=== PATIENT | female | born 1995 | race Caucasian/White ===

== ENCOUNTER 2021-07-30 19:36 | Emergency (ER) | payer OTHER, MEDICAID, SELFPAY ==
[2021-07-30 19:52] VITALS: BP 133/75; PULSE 74; RESP 18; TEMP 35.9; O2SAT 98; BMI 38.0
[2021-07-30 20:21] LABS: COVID19 -Nasal RAPID Negative (Negative)
--- NOTE | 2021-07-30 20:32 | ED_ITS ---
HPI - General Adult General Chief complaint: Dizziness Stated complaint: feeling dizzy, nauseus started this morning Time Seen by Provider: 07/30/21 20:03 Source: patient Mode of arrival: Ambulatory Limitations: no limitations History of Present Illness HPI narrative: Patient is a 26-year-old female. Since this morning she has had episodes of feeling dizzy and nauseated. Has not been vomiting. No chest pain. She states that her stomach just feels uneasy. She was here in the emergency department with her son who is being seen for a rash when her symptoms seem to worsen so she checked into the emergency department to be evaluated. Related Data Allergies Allergy/AdvReac Type Severity Reaction Status Date / Time No Known Drug Allergies Allergy Verified 07/30/21 19:59 Review of Systems Constitutional Constitutional: Denies fever(s) Cardiovascular Cardiovascular: Denies chest pain and Denies dyspnea Respiratory Respiratory: Denies dyspnea Gastrointestinal Gastrointestinal: Reports as per HPI and Reports system reviewed and no additional complaints, except as documented Integumentary/Breasts Skin/Breast: Reports system reviewed and no additional complaints, except as documented Neurologic Neurologic: Reports system reviewed and no additional complaints, except as documented Hematologic/Lymphatic On Anticoagulants: No Patient History Medical History Healthy adult Social History Smoking Status: Never smoker Smoking Status: Never smoker Substance Use Type: does not use Exam Initial Vital Signs Initial Vital Signs: Vital Signs Temperature 96.6 F L 07/30/21 19:52 Pulse Rate 74 07/30/21 19:52 Respiratory Rate 18 07/30/21 19:52 Blood Pressure 133/75 07/30/21 19:52 Pulse Oximetry 98 07/30/21 19:52 HENMT Head: normal to inspection and normocephalic Resp Effort & Inspection: normal respiratory effort Auscultation: clear to auscultation bilaterally Cardio Rate: regular rate Rhythm: regular rhythm Skin General: no rashes or lesions noted Neuro General: patient alert, patient awake and moves all extremities Extrem General: normal to inspection and capillary refill normal Psych Appearance: grossly normal and well kempt Course Orders Ordered: ED Orders 07/30/21 20:00 COVID19 -Nasal RAPID/Pre-Proc Stat 07/30/21 21:55 EKG-12 Lead Stat 07/30/21 22:13 Basic Metabolic Panel Stat Complete Blood Count AUTO DIFF Stat Discontinued Medications Ondansetron HCl (Ondansetron 4 Mg Odt) 4 mg SL NOW ONE Stop: 07/30/21 20:34 Last Admin: 07/30/21 20:40 Dose: 4 mg Documented by: LEXII Vital Signs Vital signs: Vital Signs - 8 hr 07/30/21 19:52 07/30/21 22:52 Temperature 96.6 F L Pulse Rate 74 81 Respiratory Rate 18 18 Blood Pressure 133/75 128/90 Pulse Oximetry 98 98 Medical Decision Making Lab Data Result diagrams: 07/30/21 22:13 07/30/21 22:13 Labs: Lab Results 07/30/21 07/30/21 07/30/21 Range/Units 20:00 22:13 22:13 WBC 9.7 (4.5-11.0) X10^3/uL RBC 4.59 (4.0-5.2) X10^6/uL Hgb 13.2 (12.0-16.0) g/dL Hct 38.9 (36-46) % MCV 84.8 (80-100) fL MCH 28.8 (26-34) PG MCHC 33.9 (30-36) % RDW 13.6 (11.6-14.8) % Plt Count 285 (150-400) X10^3/uL Neut % (Auto) 63.0 (50-75) % Lymph % (Auto) 29.6 (25-40) % [place] % (Auto) 6.1 (3-14) % Eos % (Auto) 0.7 L (2-4) % Baso % (Auto) 0.6 (0-2) % Neut # (Auto) 6100 (4082-0615) /uL Lymph # (Auto) 2900 (0129-2879) /uL [place] # (Auto) 600 (0-900) /uL Eos # (Auto) 100 (0-450) /uL Baso # (Auto) 100 (0-100) /uL Sodium 140 (137-145) mmol/L Potassium 4.0 (3.4-5.1) mmol/L Chloride 102 (98-107) mmol/L Carbon Dioxide 28 (22-32) mmol/L BUN 12 (7-17) mg/dL Creatinine 0.74 (0.52-1.04) mg/dL Estimated GFR > 60 (>60) mL/min BUN/Creatinine Ratio 16.2 (6-22) Glucose 99 (70-100) mg/dL Calcium 9.0 (8.4-10.2) mg/dL SARS-CoV-2 (PCR) Negative (Negative) Point of Care Testing Test Results Negative Urine Dip Bedside Urine Glucose Negative Bedside Urine Bilirubin - Negative Bedside Urine Ketone - Negative Urine Specific [place] 1.020 Bedside Urine Occult Blood - Negative Bedside Urine pH 6.0 Bedside Urine Protein - Negative Bedside Urine Urobilinogen - Negative Bedside Urine Nitrite - Negative Bedside Urine Leukocytes - Negative Esterase Point of care testing: Point of Care Testing Test Results Negative Urine Dip Bedside Urine Glucose Negative Bedside Urine Bilirubin - Negative Bedside Urine Ketone - Negative Urine Specific [place] 1.020 Bedside Urine Occult Blood - Negative Bedside Urine pH 6.0 Bedside Urine Protein - Negative Bedside Urine Urobilinogen - Negative Bedside Urine Nitrite - Negative Bedside Urine Leukocytes - Negative Esterase MDM Narrative Medical decision making narrative: Physical exam is nonfocal and unremarkable. Labs are unremarkable. Vital signs are unremarkable. test is negative. Denies palpitations. Do feel that we can hold on further workup for now was I do have low suspicion for an acute emergent process given her presentation. Despite this she was given strict return precautions. She expressed understanding agreement. Discharge Plan Departure Patient Disposition: Home Clinical Impression: Dizziness, Nausea Instructions: DI for Dizziness-Nonvertigo Activity Restrictions/Additional Instructions: I recommend that you increase your fluid intake. Continue all medications as directed. Contact your primary doctor for a follow-up. Return to the emergency department for any new or worsening symptoms.
[2021-07-30] MEDS: ONDANSETRON 4 MG ODT SL (20:40)
[2021-07-30 22:22] LABS: Add Manual Diff / Slide Review NO; Basophils Absolute Auto 100 /uL (0-100); Basophils Percent Auto 0.6 % (0-2); Eosinophils Absolute Auto 100 /uL (0-450); Eosinophils Percent Auto 0.7 % (2-4); Hematocrit 38.9 % (36-46); Hemoglobin 13.2 g/dL (12.0-16.0); Lymphocytes Absolute Auto 2900 /uL (1100-4500); Lymphocytes Percent Auto 29.6 % (25-40); Mean Corpuscular HGB Conc 33.9 % (30-36); Mean Corpuscular Hemoglobin 28.8 PG (26-34); Mean Corpuscular Volume 84.8 fL (80-100); Monocytes Absolute Auto 600 /uL (0-900); Monocytes Percent Auto 6.1 % (3-14); Neutrophils Absolute Auto 6100 /uL (1500-7000); Platelet Count 285 X10^3/uL (150-400); Red Blood Cell Count 4.59 X10^6/uL (4.0-5.2); Red Cell Distribution Width 13.6 % (11.6-14.8); White Blood Cell Count 9.7 X10^3/uL (4.5-11.0)
[2021-07-30 22:33] LABS: BUN Creatinine Ratio 16.2 (6-22); Blood Urea Nitrogen 12 mg/dL (7-17); Carbon Dioxide 28 mmol/L (22-32); Chloride 102 mmol/L (98-107); Estimated Glomerular Filt Rate > 60 mL/min (>60); Glucose 99 mg/dL (70-100); HEMOLYSIS 62 (0-50); Sodium 140 mmol/L (137-145)
[2021-07-30 22:52] VITALS: BP 128/90; PULSE 81; RESP 18; O2SAT 98
== END 2021-07-30 22:53 | disposition home or self-care (01) ==
PROVIDERS: Emergency Provider Emergency Medicine
DX: R42 Dizziness and giddiness (principal); R11.0 Nausea; Z20.822 Contact with and (suspected) exposure to COVID-19
CPT/HCPCS: 36415; 80048; 81003; 81025; 85025; 87635; 99283; 99284; C9803

== ENCOUNTER 2022-06-30 15:31 | Emergency (ER) | payer OTHER, MEDICAID, SELFPAY ==
[2022-06-30 16:07] VITALS: BP 145/80; PULSE 92; RESP 20; TEMP 36.8; O2SAT 98; BMI 41.0
--- NOTE | 2022-06-30 16:16 | DI.CT.S_ITS ---
PROCEDURE: CT HEAD/BRAIN WO CON INDICATIONS: headache with extremity weakness TECHNIQUE: Noncontrast 4.5 mm thick angled axial sections acquired from the foramen magnum to the vertex, with coronal and sagittal reformats. For radiation dose reduction, the following was used: automated exposure control, adjustment of mA and/or kV according to patient size. COMPARISON: CT, SINUS SCREEN WO CONTRAST, 08/26/2013, 15:28. FINDINGS: Image quality: Excellent. CSF spaces: Basal cisterns are patent. No extra-axial fluid collections. Ventricles are normal in size and shape. Brain: No midline shift. No intracranial masses or hemorrhage. Wong-white matter interface is normal. Skull and face: Calvarium and visualized facial bones are intact, without suspicious lesions. Sinuses: Visualized sinuses demonstrate small mucous retention cyst versus polyp in the right maxillary sinus. IMPRESSION: 1. No acute intracranial process. Dictated by: La Martinez M.D. on 06/30/2022 at 16:36 Approved by: La Martinez M.D. on 06/30/2022 at 16:37
--- NOTE | 2022-06-30 18:12 | ED.HA ---
HPI - Headache <OPAL Eller - Last Filed: 06/30/22 20:20> General Chief Complaint: Headache Stated Complaint: Tingling extremities, Headache Time Seen by Provider: 06/30/22 18:02 Mode of arrival: Ambulatory History of Present Illness HPI Narrative: This is a 27-year-old female presents to the emergency department today complaining of a headache with a migraine history with aura but worse migraine today than usual. She states that she was diagnosed with strep C pharyngitis last week and was started on penicillin but did not take a full course, was told that she would be called if she needed to start another antibiotic and states that she did not get a call but she took 1 or 2 doses of this other antibiotic that she can not remember. She states she went to the walk-in clinic for this at another location. Patient is currently trying to get although she is not ovulating so she states there isn't possibility she could be . She endorses fever and chills, anterior cervical lymphadenopathy on the left side, denies having any cough, denies vomiting but states that she has had a headache which is similar to previous migraines just worse today and has not gone away with Tylenol. She came in today because she states that her right arm has been tingling. She denies any recent trauma. States that she tires easily with any exertion and has been more fatigued than usual. States that her heart rate increases with all activity. Related Data Previous Rx's Medication Instructions Recorded amoxicillin 875 mg-potassium 1 tab PO BID 10 days #20 tabs 06/30/22 clavulanate 125 mg tablet benzocaine 15 mg-menthol 2.6 mg 1 rosita mucous membrane Q2-4H PRN 06/30/22 lozenges (Cepacol Sore Throat sore throat #16 ea (benzocaine-menthol)) Allergies Allergy/AdvReac Type Severity Reaction Status Date / Time No Known Drug Allergies Allergy Verified 06/30/22 16:12 Review of Systems <OPAL Eller - Last Filed: 06/30/22 20:20> Review of Systems ROS Unobtainable: All systems reviewed & are unremarkable except as noted in HPI and below Patient History <OPAL Eller - Last Filed: 06/30/22 20:20> Medical History Healthy adult Social History Smoking Status: Never smoker Smoking Status: Never smoker Substance Use Type: does not use Exam <OPAL Eller - Last Filed: 06/30/22 20:20> Narrative Exam Narrative: Reviewed vitals signs and nursing notes. General: Pleasant, sitting upright, appears uncomfortable, well groomed, afebrile HEENT: symmetrical facial expressions, moist mucous membranes, neck is supple, anterior cervical lymphadenopathy on the left, full range of motion of her neck, is supple, posterior pharynx is erythematous, tonsillar adenopathy is it 2+ without exudate, uvula is midline, no visible [employer] EOMI, PERRLA bilaterally CV: regular rate and rhythm, warm extremities Respiratory: normal work of breathing, without tachypnea or hypoxia. GI: abdomen soft, nondistended, without CVA tenderness bilaterally. MSK: moves all extremities, no weakness, normal tone, ambulatory without deficit Skin: brisk capillary refill, without rash or wound Neuro: normal speech and cognition, A&O x3 Initial Vital Signs Initial Vital Signs: Vital Signs Temperature 98.2 F 06/30/22 16:07 Pulse Rate 92 H 06/30/22 16:07 Respiratory Rate 20 06/30/22 16:07 Blood Pressure 145/80 H 06/30/22 16:07 Pulse Oximetry 98 06/30/22 16:07 Oxygen Delivery Method Room Air 06/30/22 16:07 <Benton Byrne DO - Last Filed: 07/01/22 01:40> Initial Vital Signs Initial Vital Signs: Vital Signs Temperature 98.2 F 06/30/22 16:07 Pulse Rate 92 H 06/30/22 16:07 Respiratory Rate 20 06/30/22 16:07 Blood Pressure 145/80 H 06/30/22 16:07 Pulse Oximetry 98 06/30/22 16:07 Oxygen Delivery Method Room Air 06/30/22 16:07 Course <OPAL Eller - Last Filed: 06/30/22 20:20> Orders Ordered: ED Orders 06/30/22 18:18 Basic Metabolic Panel Stat CRP [C-Reactive Protein Quant] Stat Complete Blood Count AUTO DIFF Stat HCG Quantitative /Beta subunit Stat 06/30/22 19:19 Throat Culture Stat Discontinued Medications Acetaminophen (Acetaminophen 325 Mg Tablet) 975 mg PO NOW ONE Stop: 06/30/22 18:04 Last Admin: 06/30/22 18:24 Dose: 975 mg Documented By: RL Dexamethasone (Dexamethasone 10 Mg/Ml Vial) 8 mg IV NOW ONE Stop: 06/30/22 18:04 Last Admin: 06/30/22 18:24 Dose: 8 mg Documented By: RL Sodium Chloride (Normal Saline 0.9%) 1,000 mls @ 1,000 mls/hr IV BOLUS ONE Stop: 06/30/22 19:02 Last Infusion: 06/30/22 19:28 Dose: 0 mls/hr Documented By: Admin: 06/30/22 18:24 Dose: 1,000 mls/hr Documented By: RL Ampicillin Sodium/Sulbactam (Sodium 3 gm/ Sodium Chloride) 100 mls @ 200 mls/hr IV NOW ONE Stop: 06/30/22 18:35 Last Infusion: 06/30/22 20:18 Dose: 0 mls/hr Documented By: Admin: 06/30/22 19:44 Dose: 200 mls/hr Documented By: KISHAN Ketorolac Tromethamine (Ketorolac 30 Mg/Ml Vial) 15 mg IV NOW ONE Stop: 06/30/22 18:04 Last Admin: 06/30/22 18:24 Dose: 15 mg Documented By: ALDEN Ondansetron HCl (Ondansetron 4 Mg/2 Ml Inj) 4 mg IV NOW ONE Stop: 06/30/22 18:04 Last Admin: 06/30/22 18:24 Dose: 4 mg Documented By: ALDEN Vital Signs Vital signs: Vital Signs - 8 hr 06/30/22 20:27 Pulse Rate 82 Respiratory Rate 16 Blood Pressure 132/76 Pulse Oximetry 97 Oxygen Delivery Method Room Air <Benton Byrne DO - Last Filed: 07/01/22 01:40> Orders Ordered: ED Orders 06/30/22 18:18 Basic Metabolic Panel Stat CRP [C-Reactive Protein Quant] Stat Complete Blood Count AUTO DIFF Stat HCG Quantitative /Beta subunit Stat 06/30/22 19:19 Throat Culture Stat Discontinued Medications Acetaminophen (Acetaminophen 325 Mg Tablet) 975 mg PO NOW ONE Stop: 06/30/22 18:04 Last Admin: 06/30/22 18:24 Dose: 975 mg Documented By: ALDEN Dexamethasone (Dexamethasone 10 Mg/Ml Vial) 8 mg IV NOW ONE Stop: 06/30/22 18:04 Last Admin: 06/30/22 18:24 Dose: 8 mg Documented By: RL Sodium Chloride (Normal Saline 0.9%) 1,000 mls @ 1,000 mls/hr IV BOLUS ONE Stop: 06/30/22 19:02 Last Infusion: 06/30/22 19:28 Dose: 0 mls/hr Documented By: Admin: 06/30/22 18:24 Dose: 1,000 mls/hr Documented By: ALDEN Ampicillin Sodium/Sulbactam (Sodium 3 gm/ Sodium Chloride) 100 mls @ 200 mls/hr IV NOW ONE Stop: 06/30/22 18:35 Last Infusion: 06/30/22 20:18 Dose: 0 mls/hr Documented By: Admin: 06/30/22 19:44 Dose: 200 mls/hr Documented By: KISHAN Ketorolac Tromethamine (Ketorolac 30 Mg/Ml Vial) 15 mg IV NOW ONE Stop: 06/30/22 18:04 Last Admin: 06/30/22 18:24 Dose: 15 mg Documented By: ALDEN Ondansetron HCl (Ondansetron 4 Mg/2 Ml Inj) 4 mg IV NOW ONE Stop: 06/30/22 18:04 Last Admin: 06/30/22 18:24 Dose: 4 mg Documented By: ALDEN Vital Signs Vital signs: Vital Signs - 8 hr 06/30/22 20:27 Pulse Rate 82 Respiratory Rate 16 Blood Pressure 132/76 Pulse Oximetry 97 Oxygen Delivery Method Room Air MDM - Headache <OPAL Eller - Last Filed: 06/30/22 20:20> Lab Data 06/30/22 18:18 06/30/22 18:18 Labs: Lab Results 06/30/22 06/30/22 06/30/22 Range/Units 18:18 18:18 18:18 WBC 13.1 H (4.5-11.0) X10^3/uL RBC 4.71 (4.0-5.2) X10^6/uL Hgb 13.7 (12.0-16.0) g/dL Hct 40.5 (36-46) % MCV 85.9 (80-100) fL MCH 29.2 (26-34) PG MCHC 33.9 (30-36) % RDW 13.6 (11.6-14.8) % Plt Count 328 (150-400) X10^3/uL Neut % (Auto) 68.2 (50-75) % Lymph % (Auto) 25.0 (25-40) % [place] % (Auto) 5.6 (3-14) % Eos % (Auto) 0.7 L (2-4) % Baso % (Auto) 0.5 (0-2) % Neut # (Auto) 8900 H (6879-2572) /uL Lymph # (Auto) 3300 (7356-1550) /uL [place] # (Auto) 700 (0-900) /uL Eos # (Auto) 100 (0-450) /uL Baso # (Auto) 100 (0-100) /uL Sodium 137 (137-145) mmol/L Potassium 4.5 (3.4-5.1) mmol/L Chloride 103 (98-107) mmol/L Carbon Dioxide 27 (22-32) mmol/L BUN 12 (7-17) mg/dL Creatinine 0.65 (0.52-1.04) mg/dL Estimated GFR > 60 (>60) mL/min BUN/Creatinine Ratio 18.5 (6-22) Glucose 92 (70-100) mg/dL Calcium 8.8 (8.4-10.2) mg/dL C-Reactive Protein (<1.0) mg/dL HCG, Quant < 2.4 mIU/mL 06/30/22 Range/Units 18:18 WBC (4.5-11.0) X10^3/uL RBC (4.0-5.2) X10^6/uL Hgb (12.0-16.0) g/dL Hct (36-46) % MCV (80-100) fL MCH (26-34) PG MCHC (30-36) % RDW (11.6-14.8) % Plt Count (150-400) X10^3/uL Neut % (Auto) (50-75) % Lymph % (Auto) (25-40) % [place] % (Auto) (3-14) % Eos % (Auto) (2-4) % Baso % (Auto) (0-2) % Neut # (Auto) (9796-3341) /uL Lymph # (Auto) (7078-4367) /uL [place] # (Auto) (0-900) /uL Eos # (Auto) (0-450) /uL Baso # (Auto) (0-100) /uL Sodium (137-145) mmol/L Potassium (3.4-5.1) mmol/L Chloride (98-107) mmol/L Carbon Dioxide (22-32) mmol/L BUN (7-17) mg/dL Creatinine (0.52-1.04) mg/dL Estimated GFR (>60) mL/min BUN/Creatinine Ratio (6-22) Glucose (70-100) mg/dL Calcium (8.4-10.2) mg/dL C-Reactive Protein 0.8 (<1.0) mg/dL HCG, Quant mIU/mL Imaging Data CT scan - head: Radiologist's Impression: PROCEDURE:? CT HEAD/BRAIN WO CON ? INDICATIONS:? headache with extremity weakness ? TECHNIQUE:? Noncontrast 4.5 mm thick angled axial sections acquired from the foramen magnum to the vertex, with coronal and sagittal reformats.? For radiation dose reduction, the following was used:? automated exposure control, adjustment of mA and/or kV according to patient size.? ? COMPARISON:? CT, SINUS SCREEN WO CONTRAST, 08/26/2013, 15:28. ? FINDINGS:? Image quality:? Excellent.? ? CSF spaces:? Basal cisterns are patent.? No extra-axial fluid collections.? Ventricles are normal in size and shape.? ? Brain:? No midline shift.? No intracranial masses or hemorrhage.? Wong-white matter interface is normal.? ? Skull and face:? Calvarium and visualized facial bones are intact, without suspicious lesions.? ? Sinuses:? Visualized sinuses demonstrate small mucous retention cyst versus polyp in the right maxillary sinus. ? IMPRESSION:? ? 1. No acute intracranial process. ? ? Dictated by: La Martinez M.D. on 06/30/2022 at 16:36 ? ? Approved by: La Martinez M.D. on 06/30/2022 at 16:37 ? MDM Narrative Medical decision making narrative: Chief Complaint: headache, throat pain Independent historian: Patient Differential diagnoses include but are not limited to: Migraine-tension/cluster, meningitis, urinary tract infection, acute viral process, muscular strain/sprain I have independently reviewed the patient's vital signs and nursing notes as well as prior records if available. Pertinent lab findings reviewed: Patient reports positive group C Strep via throat culture leukocytosis of 13.1, mild left shift, no elevation to her CRP or electrolyte abnormalities Pertinent Imaging reviewed: CT head negative for acute intracranial abnormality Course of care: Discussion with pharmacy regarding patient's partial treatment streptococcal infection and unknown secondary antibiotic and pharmacy recommends Unasyn for anaerobic coverage x1, may go home with Augmentin versus clindamycin. Since patient has had diarrhea last few days, opted to go with Augmentin instead for risk of C diff. she was treated with Unasyn 3 g IV x1 for anaerobic coverage. Urine dip completed showing specific gravity 1.015, without leukocytes or, aseptic, negative Repeat Throat culture is pending patient understands to return to the emergency department for worsening symptoms, stay hydrated, finish her antibiotics as prescribed. Patient's migraine was treated with Tylenol, Toradol, dexamethasone for both her throat and her headache and Zofran, her symptoms improve after 1 L of normal saline. Social considerations that may affect disposition: none Questions are addressed and there is agreement with the plan and for follow-up. Patient is appropriate for outpatient management. MIPS: This encounter doesn't have any diagnosis' associated with MIPS criteria. <Benton Byrne DO - Last Filed: 07/01/22 01:40> Lab Data Labs: Lab Results 06/30/22 06/30/22 06/30/22 Range/Units 18:18 18:18 18:18 WBC 13.1 H (4.5-11.0) X10^3/uL RBC 4.71 (4.0-5.2) X10^6/uL Hgb 13.7 (12.0-16.0) g/dL Hct 40.5 (36-46) % MCV 85.9 (80-100) fL MCH 29.2 (26-34) PG MCHC 33.9 (30-36) % RDW 13.6 (11.6-14.8) % Plt Count 328 (150-400) X10^3/uL Neut % (Auto) 68.2 (50-75) % Lymph % (Auto) 25.0 (25-40) % [place] % (Auto) 5.6 (3-14) % Eos % (Auto) 0.7 L (2-4) % Baso % (Auto) 0.5 (0-2) % Neut # (Auto) 8900 H (5595-2049) /uL Lymph # (Auto) 3300 (6035-0694) /uL [place] # (Auto) 700 (0-900) /uL Eos # (Auto) 100 (0-450) /uL Baso # (Auto) 100 (0-100) /uL Sodium 137 (137-145) mmol/L Potassium 4.5 (3.4-5.1) mmol/L Chloride 103 (98-107) mmol/L Carbon Dioxide 27 (22-32) mmol/L BUN 12 (7-17) mg/dL Creatinine 0.65 (0.52-1.04) mg/dL Estimated GFR > 60 (>60) mL/min BUN/Creatinine Ratio 18.5 (6-22) Glucose 92 (70-100) mg/dL Calcium 8.8 (8.4-10.2) mg/dL C-Reactive Protein (<1.0) mg/dL HCG, Quant < 2.4 mIU/mL 06/30/22 Range/Units 18:18 WBC (4.5-11.0) X10^3/uL RBC (4.0-5.2) X10^6/uL Hgb (12.0-16.0) g/dL Hct (36-46) % MCV (80-100) fL MCH (26-34) PG MCHC (30-36) % RDW (11.6-14.8) % Plt Count (150-400) X10^3/uL Neut % (Auto) (50-75) % Lymph % (Auto) (25-40) % [place] % (Auto) (3-14) % Eos % (Auto) (2-4) % Baso % (Auto) (0-2) % Neut # (Auto) (0806-8896) /uL Lymph # (Auto) (0784-5918) /uL [place] # (Auto) (0-900) /uL Eos # (Auto) (0-450) /uL Baso # (Auto) (0-100) /uL Sodium (137-145) mmol/L Potassium (3.4-5.1) mmol/L Chloride (98-107) mmol/L Carbon Dioxide (22-32) mmol/L BUN (7-17) mg/dL Creatinine (0.52-1.04) mg/dL Estimated GFR (>60) mL/min BUN/Creatinine Ratio (6-22) Glucose (70-100) mg/dL Calcium (8.4-10.2) mg/dL C-Reactive Protein 0.8 (<1.0) mg/dL HCG, Quant mIU/mL Discharge Plan Departure Patient Disposition: Home Clinical Impression: Streptococcal infection group C Pharyngitis Qualifiers: Pharyngitis/tonsillitis etiology: streptococcus Qualified Code(s): J02.0 - Streptococcal pharyngitis Migraine Qualifiers: Migraine type: unspecified Status migrainosus presence: without status migrainosus Intractability: intractable Qualified Code(s): G43.919 - Migraine, unspecified, intractable, without status migrainosus Instructions: Strep Throat, Migraine -- Adult Activity Restrictions/Additional Instructions: *You have been diagnosed with a strep infection. If you develop chest pain, rash, worsening fever, are unable to keep anything down or if your diarrhea becomes severe, please come back to the emergency department for complications. Your was negative today. The urine does not show any infection. The only thing abnormal was an elevated white blood cell count and this is likely related to your throat infection. Please come back if you have any worsening, the urine does not appear infected, I hope that you start feeling better soon, it may take 24 hours for you to start feeling better. Focus on hydration, clear fluids or easiest, I have given you some throat lozenges an antibiotic which should help. *What to do: *Please continue to take your regular medications as directed. [x ] New medication prescriptions sent to your pharmacy: [[facility] ] [ ] New medication written as a paper prescription [ ] No new medications given *Please follow up with your primary care provider in 2-3 days, call for an appointment. Let them know you were seen in the Emergency Department and that we asked that you be seen for follow-up. We will electronically transmit a record of today's note if your PCP is in our system *If you do not have a primary care provider please contact [phone] to establish care with one of the [facility] primary care providers. *Return to Emergency Department if you should have any new, worsening, or concerning symptoms, such as [fever greater than 101F, chills, worsening pain, persistent vomiting or other bothersome symptoms]. Prescriptions: New amoxicillin-pot clavulanate 875-125 mg tablet 1 tab PO BID 10 Days Qty: 20 0RF Cepacol Sore Throat (vimal-men) 15-2.6 mg lozenge 1 rosita mucous membrane Q2-4H PRN (Reason: sore throat) Qty: 16 0RF Stand Alone Forms: Patient Portal/API <Benton Byrne DO - Last Filed: 07/01/22 01:40> Cosign ED Attending Cosanniaature Attestation: I was immediately available in the department for consultation. This documentation has been reviewed and I agree with assessment and plan. Supervised by Benton Byrne DO
[2022-06-30] MEDS: DEXAMETHASONE 10 MG/ML VIAL 8 MG IV (18:24)
[2022-06-30] MEDS: ACETAMINOPHEN 325 MG TABLET 975 MG PO (18:24)
[2022-06-30] MEDS: ONDANSETRON 4 MG/2 ML INJ IV (18:24)
[2022-06-30] MEDS: KETOROLAC 30 MG/ML VIAL 15 MG IV (18:24)
[2022-06-30] MEDS: SODIUM CHLORIDE 0.9% 1,000 ML 1000 ML IV (18:24)
[2022-06-30 18:27] LABS: Add Manual Diff / Slide Review NO; Basophils Absolute Auto 100 /uL (0-100); Basophils Percent Auto 0.5 % (0-2); Eosinophils Absolute Auto 100 /uL (0-450); Eosinophils Percent Auto 0.7 % (2-4); Hematocrit 40.5 % (36-46); Hemoglobin 13.7 g/dL (12.0-16.0); Lymphocytes Absolute Auto 3300 /uL (1100-4500); Mean Corpuscular HGB Conc 33.9 % (30-36); Mean Corpuscular Hemoglobin 29.2 PG (26-34); Mean Corpuscular Volume 85.9 fL (80-100); Monocytes Absolute Auto 700 /uL (0-900); Monocytes Percent Auto 5.6 % (3-14); Neutrophils Absolute Auto 8900 /uL (1500-7000); Neutrophils Percent Auto 68.2 % (50-75); Platelet Count 328 X10^3/uL (150-400); Red Blood Cell Count 4.71 X10^6/uL (4.0-5.2); Red Cell Distribution Width 13.6 % (11.6-14.8); White Blood Cell Count 13.1 X10^3/uL (4.5-11.0)
[2022-06-30 18:49] LABS: BUN Creatinine Ratio 18.5 (6-22); Blood Urea Nitrogen 12 mg/dL (7-17); Calcium 8.8 mg/dL (8.4-10.2); Carbon Dioxide 27 mmol/L (22-32); Chloride 103 mmol/L (98-107); Estimated Glomerular Filt Rate > 60 mL/min (>60); Glucose 92 mg/dL (70-100); Potassium 4.5 mmol/L (3.4-5.1); Sodium 137 mmol/L (137-145)
[2022-06-30 18:52] LABS: C-Reactive Protein Quant 0.8 mg/dL (<1.0); HEMOLYSIS 90 (0-50)
[2022-06-30 19:05] LABS: HCG Quantitative /Beta subunit < 2.4 mIU/mL
[2022-06-30] MEDS: AMPICILLIN/SULBACTAM 3 GM 3 GM in SODIUM CHLORIDE 0.9% 100 ML IV (19:44)
[2022-06-30 20:27] VITALS: BP 132/76; PULSE 82; RESP 16; O2SAT 97
== END 2022-06-30 20:30 | disposition home or self-care (01) ==
PROVIDERS: Emergency Medicine; Emergency Provider Nurse Practitioner Critical Care Medicine
DX: J02.0 Streptococcal pharyngitis (principal); G43.919 Migraine, unspecified, intractable, without status migrainosus
CPT/HCPCS: 70450; 80048; 84702; 85025; 86140; 87070; 96361; 96365; 96375; 99284; J0295; J1100; J1885; J2405

== ENCOUNTER 2022-07-06 12:57 | Emergency (ER) | payer OTHER, MEDICAID, SELFPAY ==
[2022-07-06 13:06] VITALS: BP 158/104; PULSE 88; RESP 16; TEMP 36.2; O2SAT 99; BMI 40.3
--- NOTE | 2022-07-06 13:19 | ED.URI ---
HPI - URI/Sore Throat <OPAL Eller - Last Filed: 07/06/22 14:37> General Chief Complaint: Upper Respiratory Symptoms Stated Complaint: has strep/getting worse/ears hurting/throat/cough Time Seen by Provider: 07/06/22 13:02 Source: patient Mode of arrival: Ambulatory History of Present Illness HPI Narrative: This is a 27-year-old female presents emergency department complaining of bilateral ear pain a new sore throat that is irritating feeling, runny nose, congestion, states that she was getting better after she was seen for pharyngitis and headache on 06/30/2022. At that time she had a positive throat culture for group C strep, she received penicillin G IM, and was discharged with Augmentin x days 10 for otitis media. She denies fever, chills, nausea vomiting, abdominal pain, urinary changes, shortness of breath but endorses a cough with a irritated sore throat. She denies taking any antihistamines or decongestants. States that she took her Augmentin today. States that she started her Augmentin a few days late but her sore throat has not been as swollen or is painful. States that she got better for a few days and then recently just started with symptoms again Related Data Previous Rx's Medication Instructions Recorded amoxicillin 875 mg-potassium 1 tab PO BID 10 days #20 tabs 06/30/22 clavulanate 125 mg tablet benzocaine 15 mg-menthol 2.6 mg 1 rosita mucous membrane Q2-4H PRN 06/30/22 lozenges (Cepacol Sore Throat sore throat #16 ea (benzocaine-menthol)) cetirizine 5 mg-pseudoephedrine ER 1 tab PO BID PRN congestion/ear 07/06/22 120 mg tablet,extended release,12hr pain #20 tabs fluticasone propionate 50 1 spray intranasal BID PRN nasal 07/06/22 mcg/actuation nasal congestion #16 grams spray,suspension (Flonase Allergy Relief) Allergies Allergy/AdvReac Type Severity Reaction Status Date / Time No Known Drug Allergies Allergy Verified 07/06/22 13:06 Review of Systems <OPAL Eller - Last Filed: 07/06/22 14:37> Review of Systems ROS Unobtainable: All systems reviewed & are unremarkable except as noted in HPI and below Patient History <OPAL Eller - Last Filed: 07/06/22 14:37> Medical History Healthy adult Social History Smoking Status: Never smoker Smoking Status: Never smoker Substance Use Type: does not use Exam <OPAL Eller - Last Filed: 07/06/22 14:37> Narrative Exam Narrative: Reviewed vitals signs and nursing notes. General: Pleasant, congested, sitting upright, in no acute distress, well groomed, afebrile HEENT: symmetrical facial expressions, moist mucous membranes, neck is supple, no sinus tenderness to palpation, no anterior cervical lymphadenopathy, airway is widely patent, posterior pharynx with cobblestoning and mild erythema, tonsillar adenopathy is 1+ without exudate, bilateral TMs are pearly [place]wood, bulging with middle ear effusions, no erythema. Without rupture, CV: regular rate and rhythm, warm extremities Respiratory: Breath sounds are clear throughout all c[place], normal work of breathing, without tachypnea or hypoxia. GI: abdomen soft, nondistended, without CVA tenderness bilaterally. MSK: moves all extremities, no weakness, normal tone, ambulatory without deficit Skin: brisk capillary refill, without rash or wound Neuro: normal speech and cognition, A&O x3 Initial Vital Signs Initial Vital Signs: Vital Signs Temperature 97.2 F L 07/06/22 13:06 Pulse Rate 88 07/06/22 13:06 Respiratory Rate 16 07/06/22 13:06 Blood Pressure 158/104 H 07/06/22 13:06 Pulse Oximetry 99 07/06/22 13:06 Oxygen Delivery Method Room Air 07/06/22 13:06 <Benton Byrne DO - Last Filed: 07/06/22 19:43> Initial Vital Signs Initial Vital Signs: Vital Signs Temperature 97.2 F L 07/06/22 13:06 Pulse Rate 88 07/06/22 13:06 Respiratory Rate 16 07/06/22 13:06 Blood Pressure 158/104 H 07/06/22 13:06 Pulse Oximetry 99 07/06/22 13:06 Oxygen Delivery Method Room Air 07/06/22 13:06 Course <OPAL Eller - Last Filed: 07/06/22 14:37> Orders Ordered: ED Orders 07/06/22 13:15 Respiratory Panel (Film Array) Stat Discontinued Medications Acetaminophen (Acetaminophen 325 Mg Tablet) 975 mg PO NOW ONE Stop: 07/06/22 13:18 Last Admin: 07/06/22 13:32 Dose: 975 mg Documented By: AT Dexamethasone (Dexamethasone 10 Mg/Ml Vial) 10 mg PO NOW ONE Stop: 07/06/22 13:18 Last Admin: 07/06/22 13:34 Dose: 10 mg Documented By: AT Ibuprofen (Ibuprofen 400 Mg Tablet) 800 mg PO NOW ONE Stop: 07/06/22 13:18 Last Admin: 07/06/22 13:32 Dose: 800 mg Documented By: AT Loratadine (Loratadine 10 Mg Tablet) 10 mg PO NOW ONE Stop: 07/06/22 13:18 Last Admin: 07/06/22 13:33 Dose: 10 mg Documented By: AT Vital Signs Vital signs: Vital Signs - 8 hr 07/06/22 13:06 07/06/22 13:50 07/06/22 13:50 Temperature 97.2 F L Pulse Rate 88 97 H Respiratory Rate 16 Blood Pressure 158/104 H 141/87 H Pulse Oximetry 99 98 Oxygen Delivery Method Room Air Room Air <Benton Byrne DO - Last Filed: 07/06/22 19:43> Orders Ordered: ED Orders 07/06/22 13:15 Respiratory Panel (Film Array) Stat Discontinued Medications Acetaminophen (Acetaminophen 325 Mg Tablet) 975 mg PO NOW ONE Stop: 07/06/22 13:18 Last Admin: 07/06/22 13:32 Dose: 975 mg Documented By: AT Dexamethasone (Dexamethasone 10 Mg/Ml Vial) 10 mg PO NOW ONE Stop: 07/06/22 13:18 Last Admin: 07/06/22 13:34 Dose: 10 mg Documented By: AT Ibuprofen (Ibuprofen 400 Mg Tablet) 800 mg PO NOW ONE Stop: 07/06/22 13:18 Last Admin: 07/06/22 13:32 Dose: 800 mg Documented By: AT Loratadine (Loratadine 10 Mg Tablet) 10 mg PO NOW ONE Stop: 07/06/22 13:18 Last Admin: 07/06/22 13:33 Dose: 10 mg Documented By: AT Vital Signs Vital signs: Vital Signs - 8 hr 07/06/22 13:06 07/06/22 13:50 07/06/22 13:50 Temperature 97.2 F L Pulse Rate 88 97 H Respiratory Rate 16 Blood Pressure 158/104 H 141/87 H Pulse Oximetry 99 98 Oxygen Delivery Method Room Air Room Air MDM - URI/Sore Throat <OPAL Eller - Last Filed: 07/06/22 14:37> Lab Data Labs: Lab Results 07/06/22 Range/Units 13:15 Chlamy pneumoniae PCR Not detected (Not Detect) Adenovirus (PCR) Not detected (Not Detect) B. pertussis DNA (PCR) Not detected (Not Detecte) B.parapertussis DNA PCR Not detected (Not Detecte) Coronavirus OC43 (PCR) Not detected (Not Detect) Coronavirus HKU1 (PCR) Not detected (Not Detect) Coronavirus 229E (PCR) Not detected (Not Detect) SARS-CoV-2 (PCR) Not detected (Not Detecte) Coronavirus NL63 (PCR) Not detected (Not Detect) Human Metapneumovir PCR Not detected (Not Detect) Influenza Type A (PCR) Not detected (Not Detect) Influenza Type B (PCR) Not detected (Not Detect) M. pneumoniae (PCR) Not detected (Not Detect) Parainfluenza 1 (PCR) Not detected (Not Detect) Parainfluenza 2 (PCR) Not detected (Not Detect) Parainfluenza 3 (PCR) Not detected (Not Detect) Parainfluenza 4 (PCR) Not detected (Not Detect) RSV (PCR) Not detected (Not Detect) Entero/Rhino (PCR) Detected H (Not Detect) MDM Narrative Medical decision making narrative: Chief Complaint: Congestion, ear pain Independent historian: Patient Differential diagnoses include but are not limited to: Upper respiratory viral infection eustachian tube dysfunction, pharyngitis, otitis media, asthma/reactive airway exacerbation, bronchitis, GERD, postnasal drip. Respiratory PCR: Positive for rhinovirus Do not suspect underlying cardiopulmonary process. Patient is nontoxic appearing and not in need of emergent medical intervention. Patient is tolerating p.o., Other possible diagnosis' considered: viral URI, influenza, COVID, pharyngitis, GERD, bronchitis, asthma, pertussis, medication side effect, postnasal discharge, sinusitis, appendicitis, dehydration. Recommended rest, hydration, tylenol and NSAIDS for fever and/or pain. Return to ED for worsening symptoms such as SOB, chest pain, inability to take adequate oral fluids, fever, or productive cough. I have independently reviewed the patient's vital signs and nursing notes as well as prior records if available. Course of care: Patient's symptoms were treated with Claritin, ibuprofen and Tylenol with dexamethasone. She was called when her respiratory panel came back, she was afebrile, without respiratory distress, or signs or symptoms of systemic illness. She requested a work note work will not let her go back to work until she is symptom-free. She understands to return for worsening symptoms, finish her Augmentin prescription that she is on as it has helped and start Flonase and Zyrtec decongestants for her symptoms as needed. She understands to stay hydrated and follow-up with her primary care provider. Social considerations that may affect disposition: none Questions are addressed and there is agreement with the plan and for follow-up. Patient is appropriate for outpatient management. MIPS: This encounter doesn't have any diagnosis' associated with MIPS criteria. <Benton Byrne, DO - Last Filed: 07/06/22 19:43> Lab Data Labs: Lab Results 07/06/22 Range/Units 13:15 Chlamy pneumoniae PCR Not detected (Not Detect) Adenovirus (PCR) Not detected (Not Detect) B. pertussis DNA (PCR) Not detected (Not Detecte) B.parapertussis DNA PCR Not detected (Not Detecte) Coronavirus OC43 (PCR) Not detected (Not Detect) Coronavirus HKU1 (PCR) Not detected (Not Detect) Coronavirus 229E (PCR) Not detected (Not Detect) SARS-CoV-2 (PCR) Not detected (Not Detecte) Coronavirus NL63 (PCR) Not detected (Not Detect) Human Metapneumovir PCR Not detected (Not Detect) Influenza Type A (PCR) Not detected (Not Detect) Influenza Type B (PCR) Not detected (Not Detect) M. pneumoniae (PCR) Not detected (Not Detect) Parainfluenza 1 (PCR) Not detected (Not Detect) Parainfluenza 2 (PCR) Not detected (Not Detect) Parainfluenza 3 (PCR) Not detected (Not Detect) Parainfluenza 4 (PCR) Not detected (Not Detect) RSV (PCR) Not detected (Not Detect) Entero/Rhino (PCR) Detected H (Not Detect) Discharge Plan Departure Patient Disposition: Home Clinical Impression: Upper respiratory infection, viral Eustachian tube dysfunction Qualifiers: Laterality: bilateral Qualified Code(s): H69.83 - Other specified disorders of Eustachian tube, bilateral Instructions: Eustachian Tube Dysfunction, DI for Viral Upper Respiratory Infection -- Adult Activity Restrictions/Additional Instructions: *You have been diagnosed with a viral respiratory infection, we will call you when we have the result if it is positive for 1 of the tested viruses. I think that you are still getting better from your ear infection but due to the congestion, your middle ear has not been able to drain. Please use Zyrtec decongestants that I have prescribed for you morning and night as needed for ear pain and congestion. Use Flonase morning and night as well in both of your nares to help with this problem. It should help with the rest of your symptoms, okay to use Tylenol and ibuprofen together every 6 hours as needed for your pain. Please finish your antibiotics as prescribed. Your ears look better today without any redness but they are congested. These medications will help. Remember to drink plenty of water. *What to do: *Please continue to take your regular medications as directed. [ x] New medication prescriptions sent to your pharmacy: [[facility] ] [ ] New medication written as a paper prescription [ ] No new medications given *Please follow up with your primary care provider in 2-3 days, call for an appointment. Let them know you were seen in the Emergency Department and that we asked that you be seen for follow-up. We will electronically transmit a record of today's note if your PCP is in our system *If you do not have a primary care provider please contact [phone] to establish care with one of the [facility] primary care providers. *Return to Emergency Department if you should have any new, worsening, or concerning symptoms, such as [fever greater than 101F, chills, worsening pain, persistent vomiting or other bothersome symptoms]. Prescriptions: New cetirizine-pseudoephedrine 5-120 mg tablet extended release 12 hr 1 tab PO BID PRN (Reason: congestion/ear pain) Qty: 20 0RF fluticasone propionate [Flonase Allergy Relief] 50 mcg/actuation spray,suspension 1 spray intranasal BID PRN (Reason: nasal congestion) Qty: 16 0RF Rx Instructions: administer into each nostril No Action amoxicillin-pot clavulanate 875-125 mg tablet 1 tab PO BID 10 Days Qty: 20 0RF Cepacol Sore Throat (vimal-men) 15-2.6 mg lozenge 1 rosita mucous membrane Q2-4H PRN (Reason: sore throat) Qty: 16 0RF Referrals: Miscellaneous,Doctor, MD [Primary Care Provider] - Stand Alone Forms: Patient Portal/API, Work Release Note <Benton Byrne DO - Last Filed: 07/06/22 19:43> Cosign ED Attending Daynaature Attestation: I was immediately available in the department for consultation. Documentation has been reviewed. I agree with assessment and plan.
[2022-07-06] MEDS: ACETAMINOPHEN 325 MG TABLET 975 MG PO (13:32)
[2022-07-06] MEDS: IBUPROFEN 400 MG TABLET 800 MG PO (13:32)
[2022-07-06] MEDS: LORATADINE 10 MG TABLET PO (13:33)
[2022-07-06] MEDS: DEXAMETHASONE 10 MG/ML VIAL PO (13:34)
[2022-07-06 13:50] VITALS: BP 141/87; PULSE 97; O2SAT 98
[2022-07-06 14:17] LABS: Adenovirus Not Detected (Not Detect); B. parapertussis Not Detected (Not Detecte); Bordetella pertussis Not Detected (Not Detecte); Chlamydophila pneumoniae Not Detected (Not Detect); Coronavirus 229E Not Detected (Not Detect); Coronavirus HKU1 Not Detected (Not Detect); Coronavirus NL 63 Not Detected (Not Detect); Coronavirus OC43 Not Detected (Not Detect); Human Metapneumovirus Not Detected (Not Detect); Human Rhinovirus/Enterovirus Detected (Not Detect); Influenza A Not Detected (Not Detect); Influenza B Not Detected (Not Detect); Mycoplasma pneumoniae Not Detected (Not Detect); Parainfluenza Virus 1 Not Detected (Not Detect); Parainfluenza Virus 2 Not Detected (Not Detect); Parainfluenza Virus 3 Not Detected (Not Detect); Parainfluenza Virus 4 Not Detected (Not Detect); Respiratory Syncytial Virus Not Detected (Not Detect); SARS- CoV-2 Not Detected (Not Detecte)
== END 2022-07-06 13:55 | disposition home or self-care (01) ==
PROVIDERS: Emergency Provider Nurse Practitioner Critical Care Medicine
DX: J06.9 Acute upper respiratory infection, unspecified (principal); H69.83 Other specified disorders of Eustachian tube, bilateral; B34.8 Other viral infections of unspecified site; Z20.822 Contact with and (suspected) exposure to COVID-19
CPT/HCPCS: 87633; 99283; J1100